=== PATIENT | female | born 2005 | race Caucasian/White ===

== ENCOUNTER 2025-03-19 16:35 | Emergency (ER) | payer OTHER, SELFPAY ==
--- NOTE | ~2025-03-19 | XR_ITS ---
HISTORY: slammed in door, pain PIP 5th digit COMPARISON: None TECHNIQUE: 2 views of the left fifth digit were performed FINDINGS: Irregular lucency within the distal shaft of the proximal phalanx of the left fifth digit, where a nu trient foramen is favored rather than an acute fracture. Joint spaces are preserved and alignment is maintained. Soft tissues are unremarkable without radiopaque foreign body or significant soft tissue swelling. Age-appropriate mineralization. IMPRESSION: Irregular lucency within the distal shaft of the proximal phalanx of the left fifth digi t where a nutrient foramen is favored rather than acute fracture. Remainder of the visualized osseous structures are unremarkable. No significant soft tissue swelling. Reviewed, dictated and finalized at location A. IMPRESSION: Irregular lucency within the distal shaft of the proximal phalanx of the left fifth digit where a nutrient foramen is favored rather than acute f racture. Remainder of the visualized osseous structures are unremarkable. No significant soft tissue swelling.
--- NOTE | 2025-03-19 16:44 | ED.WOUNDLAC ---
HPI - Wound/Laceration General Chief Complaint: Wound/Laceration Stated Complaint: Injured Finger L Hand Time Seen by Provider: 03/19/25 16:45 Source: patient Mode of arrival: ambulatory Limitations: no limitations History of Present Illness HPI narrative: 19-year-old female presented for complaint of left little finger pain following injury yesterday. She states the last 2 fingers were slammed in a door at work. Endorses the 4th finger has an abrasion due to a ring that was smashed on to the finger and had to be cut. She currently denies significant pain other than an abrasion. She endorses the left little finger started hurting more today and has mild swelling. Has not taken anything for pain. Related Data Home Medications ?Medication ?Instructions ?Recorded ?Confirmed ?Last Taken ?Type No Home Medications 03/19/25 03/19/25 Unknown History Allergies Allergy/AdvReac Type Severity Reaction Status Date / Time No Known Allergies Allergy Verified 03/19/25 16:51 Review of Systems Review of Systems: CONSTITUTIONAL: Denies body aches, fever, chills EYES: Denies visual changes ENT: Denies rhinorrhea, congestion CARDIOVASCULAR: Denies chest pain, palpitations, or edema. RESPIRATORY: Denies cough or dyspnea. SKIN: Denies rash, itching, or wounds. MUSCULOSKELETAL: reports left finger pain. NEUROLOGIC: Denies headache, numbness, tingling, or weakness. All systems reviewed & are unremarkable except as noted in HPI and below PMFSH Comments At time of signature, I have reviewed and agree with nursing past medical, surgical, social and family history unless otherwise noted. Please see nursing chart for further information. There is no relevant family history pertinent to the presenting complaint Exam Narrative: GENERAL: Well-appearing CHEST: Speaks in full sentences. No respiratory distress. HEART: Regular rate and rhythm. Normal and equal peripheral pulses. EXTREMITIES: Left hand has normal strength and sensation, 5th digit with slightly decreased range of motion due to pain with movement; full extension is limited. Tender with palpation to the PIP joint. No swelling or ecchymosis, No open wounds, or obvious deformity; alignment normal, pulse palpable and equal bilaterally, skin warm, dry, pink. Capillary refill less than 3 seconds. SKIN: Warm, dry, superficial abrasion to left 4th digit proximal phalanx NEURO: Alert and oriented x3. PSYCH: Normal mood and affect Course Course Emergency Course: Patient is aware of diagnosis, understands and agrees to treatment plan. Anticipatory guidance given. Patient agrees to follow-up as directed and is aware of reasons to seek care at the emergency department. Portions of this record may have been created with voice recognition software Level of Care: Express Care Visit Vital Signs Vital signs: Vital Signs Temperature 98.7 F 03/19/25 16:45 Pulse Rate 86 03/19/25 16:45 Respiratory Rate 18 03/19/25 16:45 Blood Pressure 133/76 03/19/25 16:45 Pulse Oximetry 100 03/19/25 16:45 Temperature 98.7 F 03/19/25 16:45 Pulse Rate 86 03/19/25 16:45 Respiratory Rate 18 03/19/25 16:45 Blood Pressure 133/76 03/19/25 16:45 Pulse Oximetry 100 03/19/25 16:45 Reviewed MDM - Wound/Laceration MDM Narrative Medical decision making narrative: Discussed physical exam findings and x-ray. Metal finger splint applied due to mechanism of injury. v/u. Advised supportive measures and signs/symptoms to go to the ER. Pt is appropriate for outpt treatment and f/u. Differential Diagnosis Differential diagnosis: Likely laceration, abrasion, avulsion of skin and other (Finger fracture, contusion, dislocation) Imaging Data Radiologist's impression: Patient: Brody An : 2005 MR#: [id number] Age: 19 Acct:[id number] [facility] ADM Date: 03/19/25Attending Dr: Ordering Physician: Jeannie Cortes APRN Date of Service: 03/19/25 Procedure(s): XR finger 5th LT min 2V Accession Number(s): [id number] cc: Jeannie Cortes APRN; SENIOR [employer] ENGINEER PHYSICIAN~ HISTORY: slammed in door, pain PIP 5th digit COMPARISON: None TECHNIQUE: 2 views of the left fifth digit were performed FINDINGS: Irregular lucency within the distal shaft of the proximal phalanx of the left fifth digit, where a nutrient foramen is favored rather than an acute fracture. Joint spaces are preserved and alignment is maintained. Soft tissues are unremarkable without radiopaque foreign body or significant soft tissue swelling. Age-appropriate mineralization. IMPRESSION: Irregular lucency within the distal shaft of the proximal phalanx of the left fifth digit where a nutrient foramen is favored rather than acute fracture. Remainder of the visualized osseous structures are unremarkable. No significant soft tissue swelling. Discharge Plan Discharge Clinical Impression: Finger pain, left Patient Disposition: Home Condition: Stable Instructions: Antibiotic Form, Finger Fracture (ED) Additional Instructions: Rest, avoid lifting, pushing, pulling etc. are anything worsens pain ice and elevate the left hand Motrin and Tylenol every 8 hours as needed for pain. Keep splint clean, dry and in place until symptoms are fully resolved Go to the ER immediately for increased pain, tingling/numbness, swelling, redness, etc Follow up with Orthopedic Surgery in 3 days for further evaluation - please call today for an appointment. Patient Language: Tongan Prescriptions: No Action No Home Medications Follow-up/Referrals: Cherry Bellamy MD [Physician] - PHYSICIAN,SENIOR [employer]ICAL [employer]OLS ENGINEER [Primary Care Provider] - Time of Disposition: 17:28
[2025-03-19 16:45] VITALS: BP 133/76; PULSE 86; RESP 18; TEMP 37.1; O2SAT 100
== END 2025-03-19 17:34 | disposition home or self-care (01) ==
PROVIDERS: Emergency Provider Nurse Practitioner Family
DX: M79.645 Pain in left finger(s) (principal)
CPT/HCPCS: 29130; 73140; 99213; G0463

== ENCOUNTER 2025-05-16 18:05 | Emergency (ER) | payer OTHER, SELFPAY ==
--- NOTE | 2025-05-16 18:07 | ED_ITS ---
HPI - Nausea/Vomiting/Diarrhea General Chief complaint: Abdominal Pain Stated complaint: ABD CRAMPING/LIGHT HEADED/NAUSEA Time Seen by Provider: 05/16/25 18:07 Source: patient Mode of arrival: ambulatory Limitations: no limitations History of Present Illness HPI Narrative: Brody is a 19-year-old female patient presenting to the clinic today with complaints of lower abdominal cramping, lightheadedness, and nausea. She reports symptoms started 2 days ago. Last menstrual period was last month ago. Could potentially be . [place] lightheaded like she could pass out but those symptoms have resolved. Is reporting some nausea. Denies any urinary symptoms, vaginal discharge, vaginal bleeding, or back pain. Patient reports that her abdominal cramping does feel similar to the start of her menses Related Data Allergies Allergy/AdvReac Type Severity Reaction Status Date / Time No Known Allergies Allergy Verified 03/19/25 16:51 Review of Systems Review of Systems: Pertinent positives per HPI. Patient denies any fever, chills, rash, headache, visual changes, dizziness, cough, runny nose, sore throat, shortness of breath, chest pain, palpitations, vomiting, diarrhea, constipation, or any urinary issues. PMFSH Comments At the time of my signature, I reviewed and agree with the nursing past medical, surgical, social, and family history. There is no relevant family history pertinent to the patient complaint. Exam Narrative: General: Well-developed, well nourished, in no apparent distress. Head: Normocephalic, atraumatic. Cardio: Regular rate and rhythm, s1 and s2 normal, no murmur appreciated. Resp: Clear to auscultation bilaterally, no rhonchi, rales, wheezing or rubs. Abdomen: Soft, pliable, bowel sounds present in all quadrants, non-tender to palpation, no organomegly, no CVAT tenderness. Course Course Emergency Course: Portions of this record may have been created with voice recognition software. Level of Care: Express Care Visit Vital Signs Vital signs: Vital Signs Temperature 37.1 C 05/16/25 18:16 Pulse Rate 97 05/16/25 18:16 Respiratory Rate 16 05/16/25 18:16 Blood Pressure 136/73 05/16/25 18:16 Pulse Oximetry 100 05/16/25 18:16 Temperature 37.1 C 05/16/25 18:16 Pulse Rate 97 05/16/25 18:16 Respiratory Rate 16 05/16/25 18:16 Blood Pressure 136/73 05/16/25 18:16 Pulse Oximetry 100 05/16/25 18:16 Vital signs reviewed MDM - Nausea/Vomiting/Diarrhea MDM Narrative Medical decision making narrative: At the time of visit patient is resting comfortably on the exam table. Patient appears to be nontoxic. complaints of lower abdominal cramping, lightheadedness, and nausea. She reports symptoms started 2 days ago. Last menstrual period was last month ago. Could potentially be as she is sexually active. [place] lightheaded like she could pass out earlier today but those symptoms have resolved. Is reporting some nausea. Denies any urinary symptoms, vaginal discharge, vaginal bleeding, or back pain. Patient reports that her abdominal cramping does feel similar to the start of her menses Labs: Bedside urine test was negative. Urinalysis shows 3+ blood- patient denying any UTI symptoms Plan: I suspect patient has episodic lightheadedness, nausea, and abdominal cramping. Bedside test was negative and urine shows 3+ blood and her urine-I expect this is likely due to the start of her menses cycle. Supportive measures were discussed with the patient and they voiced understanding discharge instructions and agrees to treatment plan. Return precautions reviewed Differential Diagnosis Differential diagnosis: Likely drug-induced nausea and vomiting, dehydration and other (Nausea, orthostatic hypertension, hypoglycemia, ) Lab Data Labs: Lab Results 05/16/25 Range/Units 18:34 POC Urine Color Yellow POC Urine Clarity Clear POC Urine pH 6.0 POC Ur Specif [place] 1.030 POC Urine Protein Negative (Negative) POC Ur Glucose (UA) Negative (Negative) POC Urine Ketones Negative (Negative) POC Urine Blood 3+ (Negative) POC Urine Nitrite Negative (Negative) POC Urine Bilirubin Negative (Negative) POC Urine Urobilinogen 0.2 POC U Leukocyte Esteras Negative (Negative) POC Urine HCG, Qual Negative (Negative) Discharge Plan Discharge Clinical Impression: Abdominal cramping, Nausea, Episodic lightheadedness Patient Disposition: Home Condition: Stable Instructions: Antibiotic Form, Acute Nausea and Vomiting (ED), Lightheadedness (ED) Additional Instructions: Urine shows 3+ blood -this may be likely due to you getting ready to start your menses Bedside test was negative Increase fluids and stay well hydrated Eat well-balanced meals Change positions slowly May take Zofran as needed for nausea Follow-up with your PCP in 3-5 days if symptoms persist or go to the emergency room if symptoms worsen Go the emergency room if he develops fainting, confusion, weakness, nausea vomiting not controlled by medication, shortness of breath, chest pain, or worsening of abdominal pain. Patient Language: [place]ian Prescriptions: New ondansetron 8 mg tablet,disintegrating 8 mg PO Q8H PRN (Reason: nausea and vomiting) 3 Days Qty: 10 0RF Follow-up/Referrals: UNKNOWN,DOCTOR [Non-Staff] Stand Alone Forms: Work/School Release IP Time of Disposition: 18:38 Quality NIHSS Nursing Documentation ED NIHSS nursing documentation: reviewed/agree
[2025-05-16 18:16] VITALS: BP 136/73; PULSE 97; RESP 16; TEMP 37.1; O2SAT 100
[2025-05-16 18:38] LABS: BEDSIDEPREGUCG Negative (Negative); EDUAAPPEAR Clear; EDUABILI Negative (Negative); EDUABLOOD 3+ (Negative); EDUACOLOR1 Yellow; EDUAGLUCOSE Negative (Negative); EDUAKETONE Negative (Negative); EDUALEUKO Negative (Negative); EDUANITRATE Negative (Negative); EDUAPH 6.0; EDUAPROTEIN Negative (Negative); EDUASPGRAVITY 1.030; EDUAUROBILI 0.2
== END 2025-05-16 18:46 | disposition home or self-care (01) ==
PROVIDERS: Emergency Provider Nurse Practitioner Family
DX: R10.30 Lower abdominal pain, unspecified (principal); R11.0 Nausea; R42 Dizziness and giddiness
CPT/HCPCS: 81003; 81025; 99213; G0463